=== PATIENT | female | born 1935 | race Caucasian/White ===

== ENCOUNTER 2016-07-07 17:56 | Emergency (ER) | payer MEDICARE ==
[~2016-07-07] VITALS: Ht 162.6 cm; Wt 50.8 kg
[~2016-07-07 17:56] MED LIST: LEVO88TA5 PO
[2016-07-07] MEDS ORDERED: ATOR10TA PO (18:08)
[2016-07-07] MEDS ORDERED: AMIO200T2 PO (18:08)
[2016-07-07] MEDS ORDERED: DIPH25CA83 PO (18:08)
[2016-07-07] MEDS ORDERED: ASPI-991 PO (18:08)
[2016-07-07] MEDS ORDERED: MIRT15TA7 PO (18:08)
[2016-07-07] MEDS ORDERED: LEVO125T8 PO (18:08)
[2016-07-07] MEDS ORDERED: QUET25TA PO ×2 (18:08)
[2016-07-07 20:02] VITALS: BP 141/71
== END 2016-07-07 20:02 | disposition home or self-care (01) ==
LOC: ER 18:01
DX: S09.90XA Unspecified injury of head, initial encounter (principal); E03.9 Hypothyroidism, unspecified; W18.39XA Other fall on same level, initial encounter; Y93.89 Activity, other specified; Y92.89 Other specified places as the place of occurrence of the external cause; Y99.8 Other external cause status
CPT/HCPCS: 70450-TC; 72125-TC; A4606; Z7610

== ENCOUNTER 2022-09-28 22:04 | Inpatient (IN) | payer MEDICARE, OTHER ==
[~2022-09-28] VITALS: Ht 170.2 cm; Wt 74.8 kg
[~2022-09-28 22:04] MED LIST changes: +AMIO200T5 PO; +ASPI-1420 PO; +ATOR10TA PO; +DIPH25CA83 PO; +LEVO125T8 PO; -LEVO88TA5 PO; +MIRT-90 PO; +QUET25TA PO
--- NOTE | 2022-09-28 22:28 | NUR ---
COVID ANTIGEN SWAB COLLECTED AND SENT TO LAB
--- NOTE | 2022-09-28 22:29 | NUR ---
RAOUL AMBULIFE FROM [facility] C/O AGGITATION FOR COUPLE OF WEEKS. PT A/OX.1 TOLERATING R/A WELL WITH NO RESP DISTRESS. SAFETY MEASURES IN PLACE.
[2022-09-28 23:09] LABS: BASOPHILS % (AUTO) 0.2 % (0.0-2.0); EOSINOPHILS % (AUTO) 3.9 % (0.0-6.0); HEMATOCRIT 42 % (33-45); HEMOGLOBIN 13.8 g/dL (11.5-14.8); LYMPHOCYTES # (AUTO) 1.7 K/uL (0.8-4.8); LYMPHOCYTES % (AUTO) 24.2 % (20.0-44.0); MEAN CORPUSCULAR HGB CONC 33 g/dl (31.0-36.0); MEAN CORPUSCULAR VOLUME 86 fL (82-100); MONOCYTES # (AUTO) 0.8 K/uL (0.1-1.30); NEUTROPHILS # (AUTO) 4.2 K/uL (1.8-8.9); NEUTROPHILS % (AUTO) 60.7 % (43.0-81.0); PLATELET COUNT (AUTO) 171 K/uL (150-450); RED BLOOD CELL COUNT(AUTO) 4.93 MIL/uL (4.0-5.2)
--- NOTE | 2022-09-28 23:21 | NUR ---
URINE COLLECTED AND SENT TO LAB
[2022-09-28 23:26] LABS: CALCIUM, SERUM 9.1 mg/dL (8.5-10.1); CARBON DIOXIDE 28 mmol/L (21-32); CHLORIDE 108 mmol/L (98-107); CREATININE 1.2 mg/dL (0.6-1.3); GLUCOSE 106 mg/dL (74-106); POTASSIUM 4.4 mmol/L (3.5-5.1); SODIUM SERUM 144 mmol/L (136-145); UREA NITROGEN, BLOOD 27 mg/dL (7-18)
[2022-09-28 23:40] LABS: BILIRUBIN,URINE NEGATIVE (NEGATIVE); COLOR,URINE YELLOW (YELLOW); LEUKOCYTE ESTERASE ,URINE NEGATIVE (NEGATIVE); NITRITE, URINE NEGATIVE (NEGATIVE); PH,URINE 5.5 (5.0-8.0); PROTEIN,URINE NEGATIVE (NEGATIVE); UGLUCOSE NEGATIVE (NEGATIVE); UROBILINOGEN,URINE 0.2 EU/dL (0.2)
[2022-09-28 23:42] LABS: ALANINE AMINOTRANSFERASE 22 U/L (12-78); ALKALINE PHOSPHATASE 64 U/L (46-116); ASPARTATE AMINOTRANSFERASE 15 U/L (15-37); BILIRUBIN,DIRECT 0.1 mg/dL (0.0-0.2); BILIRUBIN,TOTAL 0.5 mg/dL (0.2-1.0); TOTAL PROTEIN, SERUM 6.5 g/dL (6.4-8.2)
[2022-09-28 23:43] LABS: ALCOHOL, BLOOD < 3 mg/dL (0-0)
--- NOTE | 2022-09-29 02:43 | NUR ---
REPORT GIVEN TO DARIEN OLGUIN RN FOR JAMESON
[2022-09-29 03:30] VITALS: BP 105/84
--- NOTE | 2022-09-29 03:30 | NUR ---
GPS ADMISSION NOTE, RECEIVED PATIENT FROM [facility]. PATIENT ARRIVED ON THIS UNIT AT 0330 VIA STRETCHER WITH 1 BREAKER TABLE WORKER ESCORT. PATIENT ADMITTED ON A 5150 HOLD FOR GD. PER HOLD PATIENT HAS BEEN INCREASINGLY CONFUSED, AGITATED, AND HAS POOR JUDGMENT. PATIENT IS NOT ABLE TO PROVIDE FOR HER FOOD, CLOTHING, OR INTERMEDIATE DUE TO MENTAL DISORDER. [facility] IS UNABLE TO PROVIDE THE SAME DUE TO HER BEHAVIOR. THE 5150 WAS REVIEWED AND THE DOCUMENTATION IN THE 5150 HOLD APPEARS TO REFLECT THE PRESENTATION OF THE PATIENT. UPON FACE TO FACE ASSESSMENT PATIENT IS CURRENTLY LYING IN BED AWAKE, HAS NO S/S OR COMPLAINTS OF PAIN. PATIENT IS DISPLAYING NO S/S OF APPARENT DISTRESS. PATIENT BREATHING IS UNLABORED WITH EQUAL RISE AND FALL OF THE CHEST. PATIENT IS ALERT AND ORIENTATED X 1 ON ROOM AIR. PATIENT ASSISTED WITH TURING AND REPOSITIONING Q2HR AND PRN FOR COMFORT AND CIRCULATION. PATIENT HAS NO NEEDS AT THIS TIME. PATIENT ADVISED OF HER HOLD AND PATIENT RIGHTS BOOKLET GIVEN. PATIENT IS NOTED TO BEING CONFUSED, DISHEVELED, DISORGANIZED, COOPERATIVE, AND NEEDS REDIRECTION. PATIENT DENIES SUICIDE IDEATIONS AND HOMICIDAL IDEATIONS AT THIS TIME. PATIENT IS UNDER THE PSYCHIATRIC CARE OF DR. MARADIAGA AND THE MEDICAL CARE OF SEUN MAHMOOD NP. PATIENT BELONGINGS WERE INVENTORIED AND CHECKED FOR CONTRABAND. ALL CONTRABAND REMOVED AND STORED IN PATIENT HALLWAY LOCKER. PATIENT ADVANCED DIRECTIVES PREFERENCE, IMMUNIZATIONS QUESTIONER, NECESSARY PAPERWORK, AND SKIN ASSESSMENT COMPLETED. PATIENT ORIENTATED TO ROOM, FLOOR, AND STAFF WITH ALL QUESTIONS ANSWERED. PATIENT EDUCATED ON THE USE OF THE CALL TONY. PATIENT BED SIDE RAILS ARE UP X 2 FOR SAFETY. PATIENT BED IS LOCKED, LOW AND I WILL CONTINUE TO MONITOR THIS PATIENT Q 15 MIN WITH THE HELP OF STAFF TO MAINTAIN SAFETY.
--- NOTE | 2022-09-29 03:47 | NUR ---
PT TRANSFERRED TO [facility]. VSS. ALL BELONGINGS WITH PT
[2022-09-29 04:20] VITALS: BP 126/78
[2022-09-29] MEDS ORDERED: BLOOD SUGAR DIAGNOSTIC 1 EACH STRIP IN ONE (04:20)
[2022-09-29] MEDS ORDERED: MAG HYDROX/AL HYDROX/SIMETH 30 ML UDC PO PRN (04:30)
[2022-09-29] MEDS ORDERED: MAGNESIUM HYDROXIDE 30 ML UDC PO PRN (04:30)
[2022-09-29] MEDS ORDERED: clonazePAM 0.5 MG TABLET PO PRN (04:30)
[2022-09-29] MEDS ORDERED: ACETAMINOPHEN 325 MG TABLET PO PRN (04:30)
--- NOTE | 2022-09-29 06:51 | NUR ---
RN NOTES: PT. REFUSED AM LABS DRAW , ENCOURAGED X 3 PT. STRONGLY REFUSED.
[2022-09-29] MEDS ORDERED: LEVOTHYROXINE SODIUM 125 MCG TABLET PO SCH (07:00)
[2022-09-29 08:00] VITALS: BP 113/82
--- NOTE | 2022-09-29 08:22 | NUR ---
RN-NOTES NOTED PATIENT WITH CONTINUOS SCREAMING AND YELLING VERY CONFUSED,REDIRECTED AND REORIENTED PATIENT.KLONOPIN0.25MG P.O GIVEN PRN ORDER. WILL CONT.MONITORING FOR SAFETY AND BEHAVIOR.
[2022-09-29] MEDS ORDERED: ATORVASTATIN 10 MG TABLET PO SCH (09:00)
[2022-09-29] MEDS ORDERED: AMIODARONE HCL 200 MG TABLET PO SCH (09:00)
--- NOTE | 2022-09-29 09:25 | NUR ---
RN-NOTES PATIENT IN BED SLEEPING EASILY AROUSED,NO ACUTE DISTRESS NOTED.
[2022-09-29] MEDS ORDERED: CHOL100043 PO (10:16)
[2022-09-29] MEDS ORDERED: BISA10SU11 RC (10:16)
[2022-09-29] MEDS ORDERED: DOCU-141 PO (10:16)
[2022-09-29] MEDS ORDERED: DIVA125C2 PO (10:16)
[2022-09-29] MEDS ORDERED: LIOT50TA6 PO (10:16)
[2022-09-29] MEDS ORDERED: SENN-261 PO (10:16)
[2022-09-29] MEDS ORDERED: APIX2.5T PO (10:16)
[2022-09-29] MEDS ORDERED: AMLO2.5T4 PO (10:16)
[2022-09-29] MEDS ORDERED: MULT-447 PO (10:16)
[2022-09-29] MEDS ORDERED: MELA3TAB41 PO (10:16)
[2022-09-29] MEDS ORDERED: MAGN400O6 PO (10:16)
[2022-09-29] MEDS ORDERED: ACET-868 PO (10:16)
[2022-09-29] MEDS ORDERED: CLON0.5T PO (10:16)
[2022-09-29] MEDS ORDERED: NA P133E RC (10:16)
[2022-09-29] MEDS ORDERED: LEVO75TA7 PO (10:16)
--- NOTE | 2022-09-29 10:54 | NUR ---
STAR Initial Discharge Note: Patient currently resides at [facility]- located at [address] [place] [phone]; ([phone]). STAR spoke with Sara lopez who stated pt is welcomed back. STAR will contact pt's son Reagan ([phone]) to discuss treatment/discharge plan. STAR will work with the MD, family, and doctor to help coordinate appropriate discharge.
--- NOTE | 2022-09-29 10:54 | NUR ---
STAR Clinical Note: Pt placed on a 5150 hold for GD. Per hold, pt was aggressive at [facility]. Patient currently resides at [facility]- located at [address] [place] [address]; ([phone]). STAR spoke with Sara lopez who stated pt is welcomed back. STAR will contact pt's son Reagan ([phone]) to discuss treatment/discharge plan.
[2022-09-29] MEDS: QUETIAPINE FUMARATE 25 MG TABLET PO SCH ×2 (14:19→16:34)
[2022-09-29] MEDS: DIVALPROEX SODIUM 125 MG CAP.SPRINK PO SCH ×2 (14:19→16:34)
--- NOTE | 2022-09-29 14:34 | NUR ---
STAR Family Contact: STAR contacted pt's son Reagan ([phone]) and notified of admission and treatment/discharge plan. He was aware. He stated he is out of town on vacation.
--- NOTE | 2022-09-29 14:44 | NUR ---
RN NOTES SEEN AND EXAMINED BY DR. MORE. MADE AWARE RE: CURRENT MEDICATION REGIMENT FROM SNF. WITH NEW ORDER AND CARRIED OUT.
[2022-09-29 16:00] VITALS: BP 104/56
--- NOTE | 2022-09-29 18:12 | NUR ---
RN=-NOTES PATIENT IN BED A/OX1,NEEDS MODERATE ASSIST WITH FEEDING AND ADL'S. NON AMBULATORY,GOOD DEJAH CARE RENDERED,COOPERATIVE WITH CARE .COMPLIANT WITH MEDICATIONS.PATIENT ABLE TO MOVE SELF IN BED. ALL NEEDS ATTENDED AND ANTICIPATED. WILL CONT.MONITORING FOR SAFETY AND BEHAVIOR. WILL ENDORSE TO INCOMING NURSE FOR THE CONTINUITY OF CARE.
[2022-09-29] MEDS: APIXABAN 2.5 MG TABLET PO SCH (20:24)
--- NOTE | 2022-09-29 20:54 | NUR ---
RN NOTES: RECEIVED PATIENT RESTING IN HER ROOM,AWAKE ALERT A/OX1. NO S/SX OF ACUTE DISTRESS NOTED FALL RISKS PATIENT IS ,CONFUSED, FORGETFUL ANXIOUS, EASILY AGITATED DELUSIONAL , TALIKG TO SELF , YELLING SCREAMING AT A TIMES, PARANOID , GUARDED ,NEEDS FREQUENTLY REDIRECTIONS, ENCOURAGED TO VERBALIZED ANY FEELING OR CONCERN ,SAFETY PRECAUTIONS MAINTAINED. WILL CONTINUE TO MONITOR Q15MIN ROUNDS FOR SAFETY.
[2022-09-29 21:03] VITALS: BP 106/67
[2022-09-29] MEDS: MIRTAZAPINE 15 MG TABLET PO SCH (21:04)
[2022-09-29] MEDS ORDERED: ASPIRIN EC 81 MG TABLET.DR PO SCH (22:00)
[2022-09-30] MEDS: Z GUARD REMEDY 4 OZ OINT TP PRN ×2 (06:07→09:24)
[2022-09-30] MEDS ORDERED: LIOTHYRONINE SODIUM 50 MCG PO SCH (07:30)
[2022-09-30 07:34] LABS: BASOPHILS % (AUTO) 0.4 % (0.0-2.0); EOSINOPHILS % (AUTO) 3.5 % (0.0-6.0); HEMATOCRIT 47 % (33-45); HEMOGLOBIN 15.1 g/dL (11.5-14.8); LYMPHOCYTES # (AUTO) 1.7 K/uL (0.8-4.8); LYMPHOCYTES % (AUTO) 21.5 % (20.0-44.0); MEAN CORPUSCULAR HGB CONC 33 g/dl (31.0-36.0); MEAN CORPUSCULAR VOLUME 86 fL (82-100); MONOCYTES # (AUTO) 0.8 K/uL (0.1-1.30); MONOCYTES % (AUTO) 10.6 % (2.0-12.0); PLATELET COUNT (AUTO) 197 K/uL (150-450); RED BLOOD CELL COUNT(AUTO) 5.43 MIL/uL (4.0-5.2); WHITE BLOOD COUNT (AUTO) 7.8 K/uL (4.3-11.0)
[2022-09-30 08:00] VITALS: BP 136/81
[2022-09-30] MEDS: DIVALPROEX SODIUM 125 MG CAP.SPRINK PO SCH ×3 (08:03→16:36)
[2022-09-30] MEDS: QUETIAPINE FUMARATE 25 MG TABLET PO SCH ×2 (08:04→16:36)
[2022-09-30] MEDS: APIXABAN 2.5 MG TABLET PO SCH ×2 (08:04→21:02)
[2022-09-30] MEDS: AMLODIPINE BESYLATE 2.5 MG TABLET PO SCH (08:07)
[2022-09-30 08:20] LABS: ALBUMIN 3.1 g/dL (3.4-5.0); BILIRUBIN,TOTAL 0.9 mg/dL (0.2-1.0); CALCIUM, SERUM 9.4 mg/dL (8.5-10.1); CREATININE 1.1 mg/dL (0.6-1.3); POTASSIUM 4.5 mmol/L (3.5-5.1); TOTAL PROTEIN, SERUM 6.8 g/dL (6.4-8.2)
[2022-09-30 16:00] VITALS: BP 115/68
[2022-09-30] MEDS: LEVOTHYROXINE SODIUM 75 MCG TABLET PO SCH (16:27)
--- NOTE | 2022-09-30 18:24 | NUR ---
RN-NOTES PATIENT IN BED A/OX1,NEEDS MODERATE ASSIST WITH FEEDING AND ADL'S. NON AMBULATORY,GOOD DEJAH CARE RENDERED,COOPERATIVE WITH CARE .COMPLIANT WITH MEDICATIONS.PATIENT ABLE TO MOVE SELF IN BED. NOTED WITH EPISODE OF YELLING AND SCREAMING . NEEDS FREQUENT REDIRECTIONS AND ORIENTATION.ALL NEEDS ATTENDED AND ANTICIPATED. WILL CONT.MONITORING FOR SAFETY AND BEHAVIOR. WILL ENDORSE TO INCOMING NURSE FOR THE CONTINUITY OF CARE.
--- NOTE | 2022-09-30 19:50 | NUR ---
tanning salon attendant notes: Received patent sleeping in bed, easily arousable. a/o x1. calm. cooperative. on room air. breathing even and unlabored. no acute distress noted. no c/o pain at this time. will continue to monitor for safety and behavior.
[2022-09-30 20:00] VITALS: BP 159/82
[2022-09-30] MEDS: MIRTAZAPINE 15 MG TABLET PO SCH (21:05)
--- NOTE | 2022-10-01 05:26 | NUR ---
ATHLETICS DIRECTOR NOTES: PATIENT SLEEPING EASILY AROUSABLE. NO ACUTE DISTRESS NOTED. CONFUSED. PARANOID. NOTED EPISODES OF YELLING AND SCREAMING. NEEDS FREQUENT REDIRECTION. MEDICATION COMPLIANT. BEDBOUND BUT ABLE TO MOVE SELF IN BED. ALL NEEDS ANTICIPATED AND ATTENDED. WILL CONTINUE TO MONITOR FOR SAFETY AND BEHAVIOR. WILL ENDORSE TO ONCOMING NURSE FOR CONTINUITY OF CARE.
[2022-10-01 08:00] VITALS: BP 120/83
[2022-10-01] MEDS: DIVALPROEX SODIUM 125 MG CAP.SPRINK PO SCH ×3 (09:24→17:17)
[2022-10-01] MEDS: QUETIAPINE FUMARATE 25 MG TABLET PO SCH ×2 (09:24→17:17)
[2022-10-01] MEDS: AMLODIPINE BESYLATE 2.5 MG TABLET PO SCH (09:25)
[2022-10-01] MEDS: APIXABAN 2.5 MG TABLET PO SCH ×2 (09:25→21:34)
[2022-10-01] MEDS: LIOTHYRONINE SODIUM (25 MCG) 25 MCG TABLET PO SCH (09:26)
[2022-10-01] MEDS: LEVOTHYROXINE SODIUM 75 MCG TABLET PO SCH (15:58)
[2022-10-01 16:00] VITALS: BP 132/50
[2022-10-01 20:45] VITALS: BP 130/75
[2022-10-01] MEDS: MIRTAZAPINE 15 MG TABLET PO SCH (21:09)
[2022-10-02] MEDS ORDERED: LEVOTHYROXINE SODIUM 125 MCG TABLET PO SCH (07:00)
[2022-10-02 08:00] VITALS: BP 131/98
[2022-10-02] MEDS: LIOTHYRONINE SODIUM (25 MCG) 25 MCG TABLET PO SCH (08:06)
[2022-10-02] MEDS: QUETIAPINE FUMARATE 25 MG TABLET PO SCH ×2 (08:07→16:57)
[2022-10-02] MEDS: APIXABAN 2.5 MG TABLET PO SCH ×2 (08:08→21:27)
[2022-10-02] MEDS: AMLODIPINE BESYLATE 2.5 MG TABLET PO SCH (08:09)
[2022-10-02] MEDS: DIVALPROEX SODIUM 125 MG CAP.SPRINK PO SCH ×3 (08:09→16:57)
[2022-10-02] MEDS: clonazePAM 0.5 MG TABLET PO PRN (13:56)
--- NOTE | 2022-10-02 13:56 | NUR ---
NURSE NOTE: PT WITH YELLING OUTBURSTS. ANXIOUS. CLONAZEPAM PO ADMINISTERED ORDERED. PT JORGE WELL. WILL CONT TO MONITOR.
--- NOTE | 2022-10-02 14:56 | NUR ---
NURSE NOTE: PT CALM AT THIS TIME. NO LONGER YELLING. CLONAZEPAM EFFECTIVE. WILL CONT TO MONITOR.
[2022-10-02] MEDS: LEVOTHYROXINE SODIUM 50 MCG TABLET PO SCH (15:35)
[2022-10-02 16:00] VITALS: BP 126/71
[2022-10-02 20:42] VITALS: BP 97/64
[2022-10-02] MEDS: MIRTAZAPINE 15 MG TABLET PO SCH (21:25)
--- NOTE | 2022-10-03 07:15 | NUR ---
PRECISION CROP MANAGER OPENING NOTE PATIENT CALM, AWAKE, ORIENTED X2. PATIENT ABLE TO MOVE HEAD TO SAY YES OR NO ANSWER. NOT CONVERSING RIGHT NOW. HOB ELEVATED TO [place]I [place] POSITION. SIDE RAILS UP X3. SAFETY MEASURES IN PLACE. BED TO THE LOWEST POSITION, TABLE WITHIN REACH. CONT. TO MONITOR.
[2022-10-03 08:00] VITALS: BP 129/91
[2022-10-03] MEDS: QUETIAPINE FUMARATE 25 MG TABLET PO SCH ×2 (08:02→17:09)
[2022-10-03] MEDS: LIOTHYRONINE SODIUM (25 MCG) 25 MCG TABLET PO SCH (08:02)
[2022-10-03] MEDS: AMLODIPINE BESYLATE 2.5 MG TABLET PO SCH (08:03)
[2022-10-03] MEDS: DIVALPROEX SODIUM 125 MG CAP.SPRINK PO SCH ×3 (08:03→17:09)
[2022-10-03] MEDS: APIXABAN 2.5 MG TABLET PO SCH ×2 (08:05→21:40)
[2022-10-03] MEDS: clonazePAM 0.5 MG TABLET PO PRN (13:52)
[2022-10-03] MEDS: LEVOTHYROXINE SODIUM 75 MCG TABLET PO SCH (14:55)
--- NOTE | 2022-10-03 19:00 | NUR ---
HYDROSTATIC TESTER CLOSINGNOTE PATIENT SITING IN G-CHAIR CALM. WILL ENDORSE REPORT TO THE FOLLOWING NURSE.
[2022-10-03 20:00] VITALS: BP 140/74
[2022-10-03 20:09] VITALS: BP 140/74
[2022-10-03] MEDS: MIRTAZAPINE 15 MG TABLET PO SCH (21:43)
[2022-10-03] MEDS: TEMAZEPAM 7.5 MG CAPSULE PO PRN (22:11)
--- NOTE | 2022-10-03 22:11 | NUR ---
GPS RN NOTES ON PARISH CHAIR,AWAKE,CALM AND QUIET,MEDICATED WIYTH RESTORIL 7.5MG PO ORDERED FOR INSOMNIA,
[2022-10-04] MEDS: LIOTHYRONINE SODIUM (25 MCG) 25 MCG TABLET PO SCH (07:28)
--- NOTE | 2022-10-04 07:28 | NUR ---
WOUND CARE CONSULT: PT PRESENTS WITH REDNESS TO PERINEAL AREA AND SACRAL DEEP TISSUE INJURY (INTACT), PRESENT ON ADMISSION. RECOMMENDATIONS MADE FOR SKIN PROTECTION. DISCUSSED WITH NURSING STAFF. PT IS INCONTINENT. MD IN AGREEMENT WITH PLAN OF CARE.
[2022-10-04 08:00] VITALS: BP 129/74
[2022-10-04] MEDS: AMLODIPINE BESYLATE 2.5 MG TABLET PO SCH (09:00)
[2022-10-04] MEDS: QUETIAPINE FUMARATE 25 MG TABLET PO SCH ×2 (09:00→17:38)
[2022-10-04] MEDS: CLOTRIMAZOLE 1% 15 GM TUBE TP SCH ×2 (09:00→17:45)
[2022-10-04] MEDS: DIVALPROEX SODIUM 125 MG CAP.SPRINK PO SCH ×3 (09:00→17:38)
[2022-10-04] MEDS: APIXABAN 2.5 MG TABLET PO SCH ×2 (09:02→20:46)
--- NOTE | 2022-10-04 13:11 | NUR ---
Court Notification: SW contacted pt's son Reagan ([phone]) and notified of 5250 hearing, left a voicemail.
--- NOTE | 2022-10-04 13:11 | NUR ---
Court Hearing: Patient's court hearing for 9040 was today and it was upheld for GD.
[2022-10-04] MEDS: LEVOTHYROXINE SODIUM 50 MCG TABLET PO SCH (15:00)
[2022-10-04 16:00] VITALS: BP 102/66
[2022-10-04] MEDS: ENSURE ENLIVE 237 ML LIQUID (VANILLA) PO SCH (17:38)
[2022-10-04 20:15] VITALS: BP 120/69
[2022-10-04] MEDS: MIRTAZAPINE 15 MG TABLET PO SCH (21:02)
[2022-10-05] MEDS: clonazePAM 0.5 MG TABLET PO PRN (06:34)
--- NOTE | 2022-10-05 06:35 | NUR ---
PRN Klonopin 0.5mg given for anxiety, started murmuring and yelling intermittently. Safety maintains at all times.
[2022-10-05 08:00] VITALS: BP 100/63
[2022-10-05] MEDS: LIOTHYRONINE SODIUM (25 MCG) 25 MCG TABLET PO SCH (08:03)
[2022-10-05] MEDS: QUETIAPINE FUMARATE 25 MG TABLET PO SCH ×2 (08:03→16:24)
[2022-10-05] MEDS: LEVOTHYROXINE SODIUM 75 MCG TABLET PO SCH (08:03)
[2022-10-05] MEDS: DIVALPROEX SODIUM 125 MG CAP.SPRINK PO SCH ×3 (08:03→16:24)
[2022-10-05] MEDS: APIXABAN 2.5 MG TABLET PO SCH ×2 (08:04→21:04)
[2022-10-05] MEDS: ENSURE ENLIVE 237 ML LIQUID (VANILLA) PO SCH ×3 (08:05→16:24)
[2022-10-05] MEDS: AMLODIPINE BESYLATE 2.5 MG TABLET PO SCH (08:06)
[2022-10-05] MEDS: CLOTRIMAZOLE 1% 15 GM TUBE TP SCH ×2 (09:12→16:30)
[2022-10-05] MEDS: Z GUARD REMEDY 4 OZ OINT TP PRN (09:13)
[2022-10-05 16:00] VITALS: BP 138/67
--- NOTE | 2022-10-05 18:16 | NUR ---
RN-NOTES PATIENT IN BED A/OX1,NEEDS MODERATE ASSIST WITH FEEDING AND ADL'S. NON AMBULATORY,GOOD DEJAH CARE RENDERED,COOPERATIVE WITH CARE .COMPLIANT WITH MEDICATIONS.PATIENT NEEDS ENCOURAGEMENT AND ASSISTED IN REPOSITIONING Q2 HR. NOTED WITH EPISODE OF YELLING AND SCREAMING . NEEDS FREQUENT REDIRECTIONS AND ORIENTATION.ALL NEEDS ATTENDED AND ANTICIPATED. WILL CONT.MONITORING FOR SAFETY AND BEHAVIOR. WILL ENDORSE TO INCOMING NURSE FOR THE CONTINUITY OF CARE.
[2022-10-05 20:21] VITALS: BP 125/86
[2022-10-05] MEDS: MIRTAZAPINE 15 MG TABLET PO SCH (21:05)
[2022-10-06] MEDS: Z GUARD REMEDY 4 OZ OINT TP PRN ×2 (05:46→22:11)
[2022-10-06 08:00] VITALS: BP 147/73
[2022-10-06] MEDS: LIOTHYRONINE SODIUM (25 MCG) 25 MCG TABLET PO SCH (08:03)
[2022-10-06] MEDS: DIVALPROEX SODIUM 125 MG CAP.SPRINK PO SCH ×3 (08:03→16:30)
[2022-10-06] MEDS: QUETIAPINE FUMARATE 25 MG TABLET PO SCH ×2 (08:03→16:30)
[2022-10-06] MEDS: AMLODIPINE BESYLATE 2.5 MG TABLET PO SCH (08:04)
[2022-10-06] MEDS: APIXABAN 2.5 MG TABLET PO SCH ×2 (08:04→20:54)
[2022-10-06] MEDS: ENSURE ENLIVE 237 ML LIQUID (VANILLA) PO SCH ×3 (08:04→16:32)
[2022-10-06] MEDS: clonazePAM 0.5 MG TABLET PO PRN ×2 (08:47→15:57)
--- NOTE | 2022-10-06 08:47 | NUR ---
RN-NOTES NOTED PATIENT WITH CONTINUOS SCREAMING AND YELLING VERY CONFUSED,REDIRECTED AND REORIENTED PATIENT.KLONOPIN 0.5 MG P.O GIVEN PRN ORDER. WILL CONT.MONITORING FOR SAFETY AND BEHAVIOR.
--- NOTE | 2022-10-06 09:50 | NUR ---
RN-NOTES PATIENT IN BED SLEEPING EASILY AROUSED,NO ACUTE DISTRESS NOTED.
[2022-10-06] MEDS: CLOTRIMAZOLE 1% 15 GM TUBE TP SCH ×2 (09:58→16:30)
[2022-10-06] MEDS: LEVOTHYROXINE SODIUM 50 MCG TABLET PO SCH (15:16)
[2022-10-06 16:00] VITALS: BP 120/69
--- NOTE | 2022-10-06 16:04 | NUR ---
RN-NOTES NOTED PATIENT WITH CONTINUOUSLY SCREAMING AND YELLING ,REDIRECTED AND REORIENTED PATIENT. KLONOPIN 0.5 MG P.O GIVEN PRN ORDER. WILL CONT.MONITORING FOR SAFETY AND BEHAVIOR.
--- NOTE | 2022-10-06 18:23 | NUR ---
RN-NOTES PATIENT IN BED A/OX1,NEEDS MODERATE ASSIST WITH FEEDING AND ADL'S.GOOD DEJAH CARE RENDERED,COOPERATIVE WITH CARE .COMPLIANT WITH MEDICATIONS.PATIENT NEEDS ENCOURAGEMENT AND ASSISTED IN REPOSITIONING Q2 HR. NOTED WITH EPISODE OF MUMBLING,TALKING TO SELF ,YELLING AND SCREAMING BEHAVIOR. PRN MEDICATIONS GIVEN . NEEDS FREQUENT REDIRECTIONS AND ORIENTATION.ALL NEEDS ATTENDED AND ANTICIPATED. WILL CONT.MONITORING FOR SAFETY AND BEHAVIOR. WILL ENDORSE TO INCOMING NURSE FOR THE CONTINUITY OF CARE.
[2022-10-06 21:03] VITALS: BP 131/69
[2022-10-06] MEDS: MIRTAZAPINE 15 MG TABLET PO SCH (21:08)
[2022-10-07] MEDS: LIOTHYRONINE SODIUM (25 MCG) 25 MCG TABLET PO SCH (07:43)
[2022-10-07] MEDS: ENSURE ENLIVE 237 ML LIQUID (VANILLA) PO SCH ×3 (07:43→16:39)
[2022-10-07 08:00] VITALS: BP 144/66
[2022-10-07] MEDS: QUETIAPINE FUMARATE 25 MG TABLET PO SCH ×2 (08:20→16:39)
[2022-10-07] MEDS: DIVALPROEX SODIUM 125 MG CAP.SPRINK PO SCH ×3 (08:20→16:39)
[2022-10-07] MEDS: AMLODIPINE BESYLATE 2.5 MG TABLET PO SCH (08:20)
[2022-10-07] MEDS: APIXABAN 2.5 MG TABLET PO SCH ×2 (08:21→20:34)
[2022-10-07] MEDS: CLOTRIMAZOLE 1% 15 GM TUBE TP SCH ×2 (08:22→16:39)
[2022-10-07] MEDS: LEVOTHYROXINE SODIUM 75 MCG TABLET PO SCH (15:20)
[2022-10-07 16:00] VITALS: BP 129/75
[2022-10-07] MEDS: MIRTAZAPINE 15 MG TABLET PO SCH (21:14)
[2022-10-07 21:47] VITALS: BP 129/91
[2022-10-08] MEDS: LIOTHYRONINE SODIUM (25 MCG) 25 MCG TABLET PO SCH (07:55)
[2022-10-08] MEDS: ENSURE ENLIVE 237 ML LIQUID (VANILLA) PO SCH ×3 (07:55→16:45)
[2022-10-08 08:00] VITALS: BP 126/86
[2022-10-08] MEDS: AMLODIPINE BESYLATE 2.5 MG TABLET PO SCH (08:48)
[2022-10-08] MEDS: QUETIAPINE FUMARATE 25 MG TABLET PO SCH ×2 (08:48→16:45)
[2022-10-08] MEDS: DIVALPROEX SODIUM 125 MG CAP.SPRINK PO SCH ×3 (08:48→16:45)
[2022-10-08] MEDS: CLOTRIMAZOLE 1% 15 GM TUBE TP SCH ×2 (08:48→16:45)
[2022-10-08] MEDS: APIXABAN 2.5 MG TABLET PO SCH ×2 (08:51→22:02)
[2022-10-08] MEDS: clonazePAM 0.5 MG TABLET PO PRN ×3 (10:42→21:42)
--- NOTE | 2022-10-08 11:00 | NUR ---
PATIENT WAS AGITATED, KLONOPIN Q4 PRN ONE TABLET ADMINISTERED.
[2022-10-08] MEDS: LEVOTHYROXINE SODIUM 75 MCG TABLET PO SCH (15:31)
--- NOTE | 2022-10-08 17:00 | NUR ---
PATIENT WAS AGITATED MAKING NOISE AND SCREAMING KLONOPIN Q4 PRN ONE TABLET ADMINISTERED. MEDICATION WAS EFFECTIVE AND HELP THE PATIENT.
--- NOTE | 2022-10-08 19:00 | NUR ---
RN CLOSING NOTE Patient a/o x1 sleeping in bed, on room air no sob or distress notes, all due meds given crushed with apple sauce. patient kept clean and dry throughout the shift. all safety measures implemented. Patient already endorsed to the mine shifter nurse for favian.
[2022-10-08 20:40] VITALS: BP 113/70
[2022-10-08] MEDS: MIRTAZAPINE 15 MG TABLET PO SCH (21:38)
[2022-10-08] MEDS: TEMAZEPAM 7.5 MG CAPSULE PO PRN (23:16)
[2022-10-09 08:00] VITALS: BP 126/90
[2022-10-09] MEDS: DIVALPROEX SODIUM 125 MG CAP.SPRINK PO SCH ×3 (08:16→16:13)
[2022-10-09] MEDS: LIOTHYRONINE SODIUM (25 MCG) 25 MCG TABLET PO SCH (08:16)
[2022-10-09] MEDS: AMLODIPINE BESYLATE 2.5 MG TABLET PO SCH (08:16)
[2022-10-09] MEDS: ENSURE ENLIVE 237 ML LIQUID (VANILLA) PO SCH ×3 (08:17→17:12)
[2022-10-09] MEDS: QUETIAPINE FUMARATE 25 MG TABLET PO SCH ×2 (08:17→16:13)
[2022-10-09] MEDS: APIXABAN 2.5 MG TABLET PO SCH ×2 (08:17→21:24)
[2022-10-09] MEDS: CLOTRIMAZOLE 1% 15 GM TUBE TP SCH ×2 (09:25→16:42)
[2022-10-09] MEDS: LEVOTHYROXINE SODIUM 50 MCG TABLET PO SCH (15:32)
[2022-10-09 16:00] VITALS: BP 157/86
--- NOTE | 2022-10-09 18:40 | NUR ---
RN- CLOSING NOTES PATIENT AWAKE, RESTING IN BED, BREATHING EVEN AND NON LABORED WITH NO S/S OF DISTRESS. PATIENT IS COOPERATIVE/UNCOOPERATIVE AT TIMES, ANXIOUS, LABILE, HYPERVERBAL, GUARDED, ISOLATIVE AND HAVING BOUTS OF YELLING/SCREAMING. PATIENT IS MEDICATION RESISTANT BUT MEDICATION COMPLIANT WITH ENCOURAGEMENT. DENIES SI/HI BUT IS CONFUSED AT THIS TIME. WILL CONTINUE TO MONITOR Q 15 MINUTES FOR SAFETY AND BEHAVIOR.
[2022-10-09 20:22] VITALS: BP 105/59
[2022-10-09] MEDS: MIRTAZAPINE 15 MG TABLET PO SCH (21:24)
[2022-10-09] MEDS: TEMAZEPAM 7.5 MG CAPSULE PO PRN (23:04)
[2022-10-10] MEDS: clonazePAM 0.5 MG TABLET PO PRN ×3 (04:50→20:54)
[2022-10-10 07:23] LABS: BASOPHILS % (AUTO) 0.3 % (0.0-2.0); EOSINOPHILS % (AUTO) 4.1 % (0.0-6.0); HEMATOCRIT 42 % (33-45); HEMOGLOBIN 13.5 g/dL (11.5-14.8); LYMPHOCYTES # (AUTO) 1.5 K/uL (0.8-4.8); MEAN CORPUSCULAR HGB CONC 32 g/dl (31.0-36.0); MEAN CORPUSCULAR VOLUME 86 fL (82-100); MONOCYTES # (AUTO) 1.4 K/uL (0.1-1.30); MONOCYTES % (AUTO) 15.2 % (2.0-12.0); NEUTROPHILS % (AUTO) 64.4 % (43.0-81.0); PLATELET COUNT (AUTO) 303 K/uL (150-450); WHITE BLOOD COUNT (AUTO) 9.4 K/uL (4.3-11.0)
[2022-10-10 07:36] LABS: CALCIUM, SERUM 9.5 mg/dL (8.5-10.1); CARBON DIOXIDE 30 mmol/L (21-32); CHLORIDE 103 mmol/L (98-107); CREATININE 1.1 mg/dL (0.6-1.3); GLUCOSE 97 mg/dL (74-106); POTASSIUM 4.4 mmol/L (3.5-5.1); SODIUM SERUM 142 mmol/L (136-145); UREA NITROGEN, BLOOD 40 mg/dL (7-18)
[2022-10-10 08:00] VITALS: BP 103/68
[2022-10-10] MEDS: DIVALPROEX SODIUM 125 MG CAP.SPRINK PO SCH ×3 (08:09→16:26)
[2022-10-10] MEDS: ENSURE ENLIVE 237 ML LIQUID (VANILLA) PO SCH ×3 (08:09→17:16)
[2022-10-10] MEDS: LIOTHYRONINE SODIUM (25 MCG) 25 MCG TABLET PO SCH (08:09)
[2022-10-10] MEDS: QUETIAPINE FUMARATE 25 MG TABLET PO SCH ×2 (08:10→16:26)
[2022-10-10] MEDS: AMLODIPINE BESYLATE 2.5 MG TABLET PO SCH (08:10)
[2022-10-10] MEDS: APIXABAN 2.5 MG TABLET PO SCH ×2 (08:11→21:03)
[2022-10-10] MEDS: CLOTRIMAZOLE 1% 15 GM TUBE TP SCH ×2 (08:44→17:16)
--- NOTE | 2022-10-10 12:16 | NUR ---
RN- NOTES KLONOPIN GIVEN DUE TO INCREASED AGITATION AND YELLING/SCREAMING.
[2022-10-10] MEDS: LEVOTHYROXINE SODIUM 75 MCG TABLET PO SCH (15:27)
[2022-10-10 16:04] VITALS: BP 98/68
--- NOTE | 2022-10-10 18:50 | NUR ---
RN- CLOSING NOTES PATIENT AWAKE, RESTING IN BED, BREATHING EVEN AND NON LABORED WITH NO S/S OF DISTRESS. PATIENT IS COOPERATIVE, CONFUSED, ANXIOUS, LABILE, HYPERVERBAL, GUARDED, DEPRESSED, AND BOUTS OF YELLING/SCREAMING NOTED. PATIENT IS MEDICATION RESISTANT BUT MEDICATION COMPLIANT WITH ENCOURAGEMENT. DENIES SI/HI BUT IS CONFUSED AT THIS TIME. WILL CONTINUE TO MONITOR Q 15 MINUTES FOR SAFETY AND BEHAVIOR.
[2022-10-10 20:31] VITALS: BP 129/79
[2022-10-10] MEDS: MIRTAZAPINE 15 MG TABLET PO SCH (22:03)
[2022-10-11 08:00] VITALS: BP 117/78
[2022-10-11] MEDS: LIOTHYRONINE SODIUM (25 MCG) 25 MCG TABLET PO SCH (08:00)
[2022-10-11] MEDS: QUETIAPINE FUMARATE 25 MG TABLET PO SCH ×2 (08:00→16:27)
[2022-10-11] MEDS: DIVALPROEX SODIUM 125 MG CAP.SPRINK PO SCH ×3 (08:02→16:26)
[2022-10-11] MEDS: AMLODIPINE BESYLATE 2.5 MG TABLET PO SCH (08:02)
[2022-10-11] MEDS: ENSURE ENLIVE 237 ML LIQUID (VANILLA) PO SCH ×3 (08:04→17:59)
[2022-10-11] MEDS: APIXABAN 2.5 MG TABLET PO SCH ×2 (08:04→21:23)
[2022-10-11] MEDS: CLOTRIMAZOLE 1% 15 GM TUBE TP SCH ×2 (08:05→16:27)
[2022-10-11] MEDS: LEVOTHYROXINE SODIUM 50 MCG TABLET PO SCH (15:22)
[2022-10-11 16:00] VITALS: BP 105/66
[2022-10-11] MEDS: clonazePAM 0.5 MG TABLET PO PRN (16:31)
--- NOTE | 2022-10-11 16:31 | NUR ---
RN- NOTES KLONOPIN GIVEN DUE TO INCREASED AGITATION AND YELLING/SCREAMING.
--- NOTE | 2022-10-11 18:31 | NUR ---
RN- CLOSING NOTES PATIENT AWAKE, RESTING IN BED, BREATHING EVEN AND NON LABORED WITH NO S/S OF DISTRESS. PATIENT IS COOPERATIVE, CONFUSED, ANXIOUS, LABILE, HYPERVERBAL, GUARDED, AND BOUTS OF YELLING/SCREAMING NOTED. PATIENT IS MEDICATION RESISTANT BUT MEDICATION COMPLIANT WITH ENCOURAGEMENT. DENIES SI/HI BUT IS CONFUSED AT THIS TIME. WILL CONTINUE TO MONITOR Q 15 MINUTES FOR SAFETY AND BEHAVIOR.
[2022-10-11 20:01] VITALS: BP 102/47
[2022-10-11 20:38] VITALS: BP 102/47
[2022-10-11] MEDS: MIRTAZAPINE 15 MG TABLET PO SCH (21:23)
[2022-10-12] MEDS: clonazePAM 0.5 MG TABLET PO PRN (03:32)
--- NOTE | 2022-10-12 03:56 | NUR ---
PATIENT MAKES STRANGE NOISES, NON-REDIRECTABLE, DOESN'T CONVERSE AND STARES DIRECTLY TO THE CEILING. PRN KLONOPIN 0.5MG GIVEN, PERINEAL CARE RENDERED. HAD BM X1.
[2022-10-12] MEDS: Z GUARD REMEDY 4 OZ OINT TP PRN ×2 (04:11→10:52)
--- NOTE | 2022-10-12 06:37 | NUR ---
RN NOTES - PATIENT SLEEPING IN BED, OPENS EYES TO TACTILE STIMULI. DISORIENTED AND CONFUSED. FREQUENT REDIRECTION AND REORIENTATION NEEDED. ROOM CHECKED FOR CONTRABAND. ON BED REST. ALL DUE MEDS GIVEN AND NEEDS ATTENDED. PERINEAL CARE RENDERED. BED LOCKED AND IN LOW POSITION, SIDE RAILS UP X2, BED ALARM ON, CALL LIGHT WITHIN REACH. WILL ENDORSE TO NEXT SHIFT FOR JAMESON.
[2022-10-12 08:00] VITALS: BP 133/74
[2022-10-12] MEDS: LIOTHYRONINE SODIUM (25 MCG) 25 MCG TABLET PO SCH (08:42)
[2022-10-12] MEDS: ENSURE ENLIVE 237 ML LIQUID (VANILLA) PO SCH ×2 (08:42→12:42)
--- NOTE | 2022-10-12 09:04 | NUR ---
SW Discharge Note: Patient will discharge to [facility]- located at [address] [place] [phone]; ([phone]). Please arrange ambulance at 1PM. Suzi jaramillo from the facility ([phone]) is aware of discharge. Pts son Reagan ([phone]) is aware and agreeable. Pt is alert and oriented x2. Pt denies suicidal or homicidal ideation. Pt denies visual/auditory hallucinations. Patient will continue to follow-up with (psychiatrist) Dr. Galvin at [address] [place] [phone]; ([phone]) and (geospatial scientist) Dr. Amado [address] [place] [phone]; ([phone]). Patient presents with euthymic mood and congruent affect.
[2022-10-12] MEDS: QUETIAPINE FUMARATE 25 MG TABLET PO SCH (09:13)
[2022-10-12] MEDS: DIVALPROEX SODIUM 125 MG CAP.SPRINK PO SCH ×2 (09:13→12:42)
[2022-10-12] MEDS: APIXABAN 2.5 MG TABLET PO SCH (09:13)
[2022-10-12 09:14] VITALS: BP 133/73
[2022-10-12] MEDS: AMLODIPINE BESYLATE 2.5 MG TABLET PO SCH (09:14)
--- NOTE | 2022-10-12 09:48 | NUR ---
Jermaine Sung PACK WORKER gave an order to D/C hold and D/C to [facility] and to follow up with psych and medical doctors. PACK WORKER reconciled on meds to continue in the facility.
[2022-10-12] MEDS: CLOTRIMAZOLE 1% 15 GM TUBE TP SCH (10:51)
--- NOTE | 2022-10-12 13:30 | NUR ---
RN-DISCHARGE NOTES PATIENT HAD A DISCHARGE ORDER FROM CORINE KING ( COVERING FOR DR. MARADIAGA PSYCHIATRIST) DR. MORE ( ECOLOGIST TECHNICIAN) MEDICALLY CLEARED PATIENT FOR DISCHARGE. PATIENT WAS DISCHARGE TO [facility]. REPORT WAS GIVEN TO [facility] SUPERVISOR SAMPLE PREPARATION. PATIENT LEFT THE UNIT IN STABLE CONDITION A/O X1 DID NOT VERBALIZE SI/HI DURING FACE TO FACE INTERVIEW . PATIENT WAS PYROTECHNIST BY AMBULANCE VIA GURNEY WITH TWO STAFF ASSIST. ALL BELONGINGS WAS GIVEN BACK TO THE PATIENT.
== END 2022-10-12 13:30 | DRG 885 ==
LOC: ER 22:26 → GPS 09-29 02:31
PROVIDERS: ADMIT Psychiatry & Neurology Psychiatry; ATTEND Legal Medicine
DX: F25.9 Schizoaffective disorder, unspecified (principal); G93.41 Metabolic encephalopathy; D68.69 Other thrombophilia; E44.0 Moderate protein-calorie malnutrition; F02.811 Dementia in other diseases classified elsewhere, unspecified severity, with agitation; F02.84 Dementia in other diseases classified elsewhere, unspecified severity, with anxiety; I10 Essential (primary) hypertension; G30.9 Alzheimer's disease, unspecified; E78.5 Hyperlipidemia, unspecified; E03.9 Hypothyroidism, unspecified; E88.09 Other disorders of plasma-protein metabolism, not elsewhere classified; Z20.822 Contact with and (suspected) exposure to COVID-19
CPT/HCPCS: 36415; 80048-TC; 80053-TC; 80061-TC; 80076-TC; 80164-TC; 82962-TC; 84443-TC; 85025-TC; 87081-TC; 97112-TC; 97530-TC; C9803; G0480